=== PATIENT | female | born 1960 | race Caucasian/White ===

== ENCOUNTER 2025-01-16 08:57 | Emergency (ER) | payer OTHER, SELFPAY ==
--- NOTE | ~2025-01-16 | CT_ITS ---
Non-contrast Head CT History: Injury Technique: Axial non-contrast imaging of the brain was performed. Dose reduction technique was used on this scan by utilizing automated exposure control and iterative reconstruction technique. The dose -length product (DLP) was 605.33 mGy-cm. Findings: There is no evidence of intracranial hemorrhage, mass lesion, or acute infarct. Brain par enchyma appears normal. The ventricles and subarachnoid spaces are normal in size. The calvarium ap pears normal. The visualized paranasal sinuses and mastoid air cells are clear. Impression: No significant abnormality seen. Reviewed, dictated and finalized at location . Impression: No significant abnormality seen.
--- NOTE | ~2025-01-16 | CT_ITS ---
EXAMINATION: 1. CT facial & cervical spine wo DATE: 01/16/2025 09:50 INDICATION: Fall with head and facial injury TECHNIQUE: 1. Computed tomography (CT) of the maxillofacial region and of the cervical spine were performed with out intravenous contrast. Sagittal and coronal reconstructions of both regions were obtained. Automat ed exposure control and iterative reconstruction technique were employed. The dose-length product was 331.05 mGy-cm. COMPARISON: None. FINDINGS: Maxillofacial CT: There is small amount of soft tissue gas at the bridge of the nose with suggestion of a laceration on the right side of the previously noticed. There is asymmetric angulation of the caudal aspect the le ft nasal bone with adjacent asymmetric soft tissue swelling suspicious for nondisplaced fracture. No other maxillofacial fractures identified. Specifically the zygomatic arches, mandible and lang of th e orbits and paranasal sinuses are all intact. Orbits are normal. There is mild mucosal thickening in the paranasal sinuses and small mucous retention cyst in the right sphenoid sinus. Mastoid air cells and middle ear cavities are clear. There is leftward bowing of the nasal septum which parallels the contours of the turbinates and without evident fracture. Cervical spine CT: Straightening of the normal lordosis in lower cervical spine with anterior and posterior fusion witho ut instrumentation at C6-C7. Vertebral body heights are normal. Moderate disc height loss at C5-C6. R emaining disc heights are normal. Disc bulge resulting in mild central canal stenosis at C5-C6 and mi nimal central canal stenosis at C2-C3 through C4-C5. There is also mild central canal stenosis at C6- C7 resulting from mild hypertrophic changes along the posterior margin of the fused disc space. There is severe bilateral facet osteoarthritis at C7-T1 and multilevel mild facet osteoarthritis in the mo re cephalad cervical spine. There is mild neural foraminal stenosis on the left at C3-C4 and bilatera lly at C5-C6 and C7-T1. Atherosclerotic calcifications at the bilateral carotid bulbs. Cervical soft tissues are otherwise unremarkable. IMPRESSION: 1. Likely acute nondisplaced fracture of the left nasal bone with focal soft tissue swelling overlyin g a subtle angulation of the nasal bone. No other maxillofacial fractures identified. 2. Moderate cervical spondylosis with anterior and posterior fusion at C6-C7. No acute osseous abnorm ality. Reviewed, dictated and finalized at location B. IMPRESSION: 1. Likely acute nondisplaced fracture of the left nasal bone with focal soft ti ssue swelling overlying a subtle angulation of the nasal bone. No other maxillo facial fractures identified. 2. Moderate cervical spondylosis with anterior and posterior fusion at C6-C7. N o acute osseous abnormality.
[2025-01-16 08:58] VITALS: BP 155/94; PULSE 71; RESP 20; TEMP 36.6; O2SAT 91
--- NOTE | 2025-01-16 09:04 | ED_ITS ---
HPI - Head Injury General Chief complaint: Head Injury Stated complaint: fall Time Seen by Provider: 01/16/25 09:04 Source: patient Mode of arrival: ambulatory Limitations: no limitations History of Present Illness HPI Narrative: patient is a 64-year-old female with an accidental fall at home and landed on the concrete from ground level to her face. She lacerated her upper lip philtrum. She is on Eliquis. No loss of consciousness. Closed head injury. MD Complaint: head injury and fall Onset (ago): hour(s) ( One) Mechanism of Injury: fall Place: home Loss of Consciousness: no Location of injury: frontal Severity: mild Severity scale (1-10): 2 Quality: dull Radiation: none Other Injuries: none Context: other anticoagulant use Associated symptoms: denies other symptoms Related Data Allergies Allergy/AdvReac Type Severity Reaction Status Date / Time No Known Allergies Allergy Verified 01/16/25 09:15 Review of Systems Review of Systems: All systems reviewed & are unremarkable except as noted in HPI and below Constitutional: Constitutional: Reports no additional constitutional complaints Eyes: Eyes: Reports no additional eye complaints ENT: Reports system reviewed and no additional complaints, except as do cumented Cardiovascular: Cardiovascular: Reports no additional cardiovascular complaints Respiratory: Respiratory: Reports no additional respiratory complaints Gastrointestinal: Gastrointestinal: Reports no additional gastrointestinal com plaints Genitourinary: Genitourinary: Reports no additional female genitourinary complaints Musculoskeletal: Musculoskeletal: Reports no additional musculoskeletal complaints Integumentary/Breasts: Skin/Breast: Reports system reviewed and no additional complaints, except as docu Neurologic: Reports system reviewed and no additional complaints, except as documented Psychiatric: Psychiatric: Reports no additional psychiatric complaints Endocrine: Endocrine: Reports no additional endocrine complaints Hematologic/Lymphatic: Hematologic/Lymphatic: Reports no additional hematologic/lymphatic complaints Allergic/Immunologic: Allergic/Immunologic: Reports no additional allergic/immunologic complaints Exam Const: General: healthy appearing Nutritional Appearance: well nourished Orientation/consciousness: patient oriented x3 HENMT: Head: normal to inspection Ears: external ears normal Face/Nose/Sinus: Normal external nose present Eyes: Conjunctivae: conjunctivae normal Pupils: Equal, round and reactive pupils present EOM: EOMs intact bilaterally Neck: Neck: normal visual inspection Chest: Chest palpation & inspection: normal inspection of the chest Resp: Effort & Inspection: normal respiratory effort and not labored Auscultation: clear to auscultation bilaterally and no crackles Cardio: Rate: regular rate Rhythm: regular rhythm Heart sounds: no murmurs GI: Inspection: non-distended GI Palp: Yes Soft to palpation and Yes Tenderness to palpation present (GI) Auscultation: normal bowel sounds : General: Yes bladder normal to palpation Back/Spine/Pelvis: Back: no CVA tenderness Skin: General skin exam: normal color Rashes: no rashes Wounds: wound noted Other: midline upper lip philtrum has a large laceration with almost through and through appearance a 1 cm; bleeding has stopped left forearm has superficial abrasions of entire extensor surface without foreign body Neuro: General: patient oriented x3 Cranial nerves: Yes CN's II-XII intact bilaterally Speech: normal speech Gait exam (Neuro): Normal gait present Extrem: General: normal to inspection Psych: Mental Status: mental status grossly normal Affect: normal affect Attitude: cooperative Course Vital Signs Vital signs: Vital Signs Temperature 36.6 C 01/16/25 08:58 Pulse Rate 71 01/16/25 08:58 Respiratory Rate 20 01/16/25 08:58 Blood Pressure 155/94 H 01/16/25 08:58 Pulse Oximetry 91 01/16/25 08:58 Oxygen Delivery Room Air 01/16/25 08:58 Temperature 36.6 C 01/16/25 08:58 Pulse Rate 71 01/16/25 08:58 Respiratory Rate 20 01/16/25 08:58 Blood Pressure 155/94 H 01/16/25 08:58 Pulse Oximetry 91 01/16/25 08:58 Oxygen Delivery Room Air 01/16/25 08:58 Procedures Other Procedure Procedure 1: Other Procedure: facial laceration 1 cm in length linear: Area cleaned with chlorhexidine/cleanser and iodine, lidocaine 1% 5 cc used for anesthesia, 5 simple sutures placed for complete closure with good results, patient tolerated procedure well and no complications, triple antibiotic placed on open wounds MDM - Head Injury MDM Narrative Medical decision making narrative: Patient is a 64-year-old female with a face and head injury prior to arrival from a ground level fall. We will go ahead and do CT scan of the head neck and face. We will suture closed the philtrum. Tetanus given. Imaging Data Attestation: I personally reviewed and interpreted this imaging study as follows: Radiologist's impression: CT scan of the head was negative for acute process CT scan of the cervical spine was negative for acute process CT scan of the facial bones has nasal fracture Discharge Plan Discharge Clinical Impression: Closed head injury Qualifiers: Encounter type: initial encounter Qualified Code(s): S09.90XA - Unspecified injury of head, initial encounter Facial laceration Qualifiers: Encounter type: initial encounter Qualified Code(s): S01.81XA - Laceration without foreign body of other part of head, initial encounter Closed fracture nasal bone Qualifiers: Encounter type: initial encounter Qualified Code(s): S02.2XXA - Fracture of nasal bones, initial encounter for closed fracture Patient Disposition: Home Condition: Stable Instructions: Nasal Fracture (ED), Head Injury (ED), Facial Laceration (ED) Additional Instructions: please follow-up with the primary doctor in the next week. You will need the stitches to be removed in 5-7 days with the primary doctor. Use antibiotic ointment on all areas of open wounds daily to twice a day. Monitor head injury for the 1st 24 hours closely. Patient Language: [place]i Prescriptions: New hydrocodone-acetaminophen 5-325 mg tablet 1 tablet PO Q8H PRN (Reason: pain) Qty: 20 0RF Follow-up/Referrals: UNKNOWN,DOCTOR [Non-Staff] - Time of Disposition: 11:52
[2025-01-16] MEDS: TETANUS,DIPHTHERIA,AC PERTUSSIS ADULT 0.5 ML (ADACEL) IM (09:19)
--- OUTSIDE RECORDS SUMMARY | 2025-01-16 09:49 | XMS_ITS | Clinical Summary ---
Author Organization [facility] Address [address] [place] [id number] Care Team Providers Care Strings Teacher Name Role Phone None, Provider MD Primary Care Provider Unavaila ble Allergies No known active allergies Medications hydrochlorothia zide 12.5 MG tablet Take 12.5 mg by mouth every morning. Active QUEtiapine 25 MG tablet Take 25 mg by mouth nightly at bedtime. Active tamsulosin 0.4 MG Cap Take 1 capsule (0.4 mg total) by mouth daily. 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 Pulse 88 11/09/2019 2:00 AM STEEL DIE ENGRA[employer] Temperature 36.3 C (97.3 F) 11/08/2019 11:33 PM STEEL [employer]RA[employer] Respiratory Rate 17 11/09/2019 2:00 AM STEEL DIE ENGRAVER Oxygen Saturation 98% 11/09/2019 2:00 AM STEEL DIE ENGRAVER Inhaled Oxygen Concentration - - Weight 108.9 kg (240 lb) 11/08/2019 11:33 PM STEEL DIE ENGRAVER Height 167.6 cm (5' 6 ) 11/08/2019 11:33 PM STEEL DIE ENGRAVER Body Mass Index 38.74 11/08/2019 11:33 PM STEEL DIE ENGRAVER Plan of Treatment Health Maintenance Due Date Last Done Comments Cervical Cancer Screening Pa p Smear (Age 30 to 64) Every 3 Years 1962 Colorectal Cancer Screening Colonoscopy (10 Years) 1962 Annual Physical 1965 Hepatitis C 02/04/1980 DTaP, Tdap and Td Vaccines ( 1 - Tdap) 1981 Cervical Cancer Screening Pa p with HPV Testing (Age 30 to 64) Every 5 Years 02/04/1992 Cervical Cancer Screening with HPV 02/04/1992 Mammogram Screening 2002 Pneumococcal Vaccine: 50+ Ye ars (1 of 1 - PCV) 02/04/2012 Zoster Vaccines (1 of 2) 02/04/2012 COVID-19 Vaccine (1 - 2023-2 5 season) 2024 RSV Immunization or 60+ Years (1 - 1-dose 75+ series) 2037 Meningococcal B Vaccine Aged Out No l onger eligible based on patient's age to complete this topic Meningococcal Vaccine Aged Out No manolo kahlil eligible based on patient's age to complete this topic RSV Immunizations Under 20 Months Aged Out No longer eligible based on patient's age to complete this topic Insurance Care Teams Strings Teacher Relationship Specialty Start Date End Date None, Provider, PCP - General 11/09/19
--- OUTSIDE RECORDS SUMMARY | 2025-01-16 09:49 | XMS_ITS | Continuity of Care Document ---
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 It does not include entries that were removed or entered in error. Problem Status Onset Date Problem Type Date of Resolution Comments Source Anticoagulant control - finding Active Condition [facility] Benign essential hypertension (SNOMED CT 7935494) Active Condition [facility] Disorder of vitamin B12 Active Condition [facility] Edema of lower leg Active Condition [facility] Generalized anxiety disorder Active Condition [facility] History of deep vein thrombosis (SNOMED CT 229933682) Active Condition Oct 11, 2011 Entered By: RITA MOORE A Comment: February 2008, had a filter put in, but it was removed.Oct 11, 2011 Entered By: RITA MOORE A Comment: also had some type of ablation [facility] Hyperlipidemia (SNOMED CT 07426887) Active Condition [facility] Insomnia Active Condition [facility] Obesity Active Condition [facility] Polycythemia Active Condition [facility] Steatosis of liver Active Condition [facility] Therapeutic drug effect Active Condition [facility] Thigh pain Active Condition [facility] Type 2 diabetes mellitus Active Condition [facility] Acute Venous Embolism and Thrombosis of unspecified Deep Vessels of lower Extrem Inactive Condition 01/05/2023 [facility] Anemia Inactive Condition 07/16/2023 [facility] Derangement, Internal Inactive Condition 07/16/2023 [facility] Encounter for Therapeutic Drug Monitoring Inactive Condition 07/16/2023 [facility] Gynecologic Exam Inactive Condition 01/05/2023 [place] FUENTES [facility] Menopause (SNOMED CT 238298970) Inactive Condition 07/16/2023 [facility] Nabothian follicles on cervix (SCT 26753615) - Cervicitis and endocervicitis (IC Inactive Condition 07/16/2023 [facility] KOREY GALLARDO [facility] Other Pulmonary Embolism and Infarction Inactive Condition 01/05/2023 [facility] Tinea cruris Inactive Condition 07/16/2023 STJuju WINTERS [facility] Unspecified Fall Inactive Condition 07/16/2023 Fe b 2011 Entered By: RITA MOORE Comment: fell in the back of a trailerFeb 2011 Entered By: RITA MOORE Comment: torn ACL and MCl unable to repair due to emboli [facility] Vitamin D deficiency Inactive Condition 07/16/2023 [facility] Diagnosis: ICD-10-CM Z51.81 Encounter for therapeutic drug level monitoring [facility] Diagnosis: ICD-10-CM Z00.00 Encntr for general adult medical exam w/o abnormal findings Active Diagnosis [facility] Diagnosis: ICD-10-CM E11.9 Type 2 diabetes mellitus without complications Active Diagnosis [facility] Diagnosis: ICD-10-CM G47.00 Insomnia, unspecified Active Diagnosis [facility] Diagnosis: ICD-10-CM Z79.01 nursing home (current) use of anticoagulants Active Diagnosis [facility] Diagnosis: ICD-10-CM R94.5 Abnormal results of liver function studies Active Diagnosis [facility] Diagnosis: ICD-10-CM I10 Essential (primary) hypertension Active Diagnosis [facility] Medications Combined list of outpatient medications from Department of Defense and Veterans Affairs facilities.Medications provided include 1) outpatient medications from the last 15 months, and 2) patient-reported medications. Medication Details Route Status Patient Instructions Prescription Expires Prescription Number Last Dispense Date Ordering Provider Order Date Order Qty Source APIXABAN 5MG TAB TAKE ONE-HALF TABLET BY MOUTH TWICE A DAY FOR ANTICOAG ULATION ORAL SUSPEND ED 12/20/2025 [id number] DUSTIN JIMÉNEZ 2024 90 [facility] N APIXABAN 5MG TAB TAKE ONE-HALF TABLET BY MOUTH TWICE A DAY FOR ANTICOAG ULATION ORAL DISCONT INUED 01/01/2025 [id number] 5 DUSTIN JIMÉNEZ 2023 90 [facility] N APIXABAN 5MG TAB TAKE ONE-HALF TABLET BY MOUTH TWICE A DAY FOR ANTICOAG ULATION ORAL DISCONT INUED 02/15/2024 [id number] LEATHA COON 2022 90 [facility] N ATORVASTATI N CA 80MG TAB TAKE ONE-HALF TABLET BY MOUTH EVERY EVENING TO LOWER CHOLESTE ROL ORAL ACTIVE 07/23/2025 [id number] 5 SHON DAVILA R 2023 45 [facility] ATORVASTATI N CA 80MG TAB TAKE ONE-HALF TABLET BY MOUTH EVERY EVENING TO LOWER CHOLESTE ROL ORAL DISCONT INUED 06/15/2024 [id number] COLIN CARTER 2022 45 [facility] LISINOPRIL 40MG TAB TAKE ONE-HALF TABLET BY MOUTH ONCE A DAY FOR HEART OR BLOOD PRESSURE ORAL SUSPEND ED 07/23/2025 [id number] 5 SHON DAVILA R 2024 45 [facility] LISINOPRIL 40MG TAB TAKE ONE-HALF TABLET BY MOUTH ONCE A DAY FOR HEART OR BLOOD PRESSURE ORAL DISCONT INUED 07/13/2024 [id number] 4 SHON DAVILA R 2023 45 [facility] METFORMIN HCL 1000MG TAB TAKE ONE TABLET BY MOUTH TWICE A DAY WITH MEALS FOR BLOOD SUGAR CONTROL. TAKE WITH FOOD. AVOID ALCOHOL. DISCONTI NUE BEFORE GETTING XRAY DYE. ORAL SUSPEND ED 07/23/2025 [id number] 5 HSON DAVILA R 2023 180 [facility] METFORMIN HCL 1000MG TAB TAKE ONE TABLET BY MOUTH TWICE A DAY WITH MEALS FOR BLOOD SUGAR CONTROL. TAKE WITH FOOD. AVOID ALCOHOL. DISCONTI NUE BEFORE GETTING XRAY DYE. ORAL DISCONT INUED 07/13/2024 [id number] 4 SHON DAVILA R 2023 180 [facility] METHOCARBAM OL 750MG TAB TAKE 1 TABLET BY MOUTH TWICE DAILY NEEDED FOR MUSCLE RELAXANT ORAL SUSPEND ED 07/23/2025 [id number] 5 SHON DAVILA R 2023 180 [facility] METHOCARBAM OL 750MG TAB TAKE 1 TABLET BY MOUTH TWICE DAILY NEEDED FOR MUSCLE RELAXANT ORAL DISCONT INUED 07/13/2024 [id number] 4 SHON DAVILA R 2023 180 [facility] MULTIVITAMI NS CAP/TAB TAKE ONE TABLET BY MOUTH ONCE A DAY ORAL ACTIVE LUKAS WISE 2021 [facility] QUETIAPINE FUMARATE 50MG TAB TAKE ONE-HALF TABLET BY MOUTH AT BEDTIME FOR MOOD ORAL ACTIVE 03/28/2025 [id number] 5 RYAN BLISS 2023 45 [facility] N QUETIAPINE FUMARATE 50MG TAB TAKE ONE-HALF TABLET BY MOUTH AT BEDTIME FOR MOOD ORAL DISCONT INUED 03/27/2024 [id number] 4 RYAN BLISS 2022 45 [facility] N Immunizations Combined list of available immunizations from the Department of Defense and [facility] Affairs facilities. Immunization Series Date Given Administered By Site Reaction Lot Number CVX Code Drug Communication Clerk Status Comments Source INFLUENZA, SPLIT VIRUS, TRIVALENT, PF 2023 BEATRICE RAMIREZ [place] [id number] 140 complet ed [facility] INFLUENZA, INJECTABLE, QUADRIVALENT, PRESERVATIVE FREE 2022 LISA SHEFFIELD RIGHT DELTO ID [id number] A 150 complet ed [facility] PNEUMOCOCCAL CONJUGATE PCV20, POLYSACCHARID E [id number] CONJUGATE, ADJUVANT, PF 2022 LISA SHEFFIELD RIGHT DELTO ID [id number] 216 complet ed [facility] COVID-19 (MODERNA), MRNA, LNP-S, BIVALENT, PF, 50 MCG/0.5 ML OR 25MCG/0.25 ML DOSE 4 2022 229 complet ed HISTORICA L INFORMATI ON - FROM OTHER [facility], [facility] COVID-19 (MODERNA), MRNA, LNP-S, PF, 100 MCG/0.5ML DOSE OR 50 MCG/0.25ML DOSE 3 2022 207 complet ed HISTORICA L INFORMATI ON - [facility] INFLU[facility], INJECTABLE, QUADRIVALENT 2021 158 complet ed [facility] TDAP 2 2021 115 complet ed HISTORICA L INFORMATI ON - FROM OTHER [facility], [facility] N ZOSTER RECOMBINANT 2 2021 187 complet ed [facility] COVID-19 (MODERNA), MRNA, LNP-S, PF, 100 MCG/0.5ML DOSE OR 50 MCG/0.25ML DOSE 2 2020 207 complet ed [facility]ORICA L INFORMATI ON - [facility] 1 2020 187 complet ed [facility] INFLUENZA, INJECTABLE, QUADRIVALENT, PRESERVATIVE FREE 4 2020 150 complet ed HISTORICA L INFORMATI ON - FROM OTHER [facility] N INFLUENZA, SEASONAL, INJECTABLE 3 2020 141 complet ed HISTORICA L INFORMATI ON - FROM OTHER [facility], [facility] COVID-19 (MODERNA), MRNA, LNP-S, PF, 100 MCG/0.5ML DOSE OR 50 MCG/0.25ML DOSE 3 2020 207 complet ed HISTORICA L INFORMATI ON - SOURCE UNSPECIFI ED, [facility] N COVID-19 (MODERNA), MRNA, LNP-S, PF, 100 MCG/0.5ML DOSE OR 50 MCG/0.25ML DOSE 1 2020 207 complet ed [facility] N INFLUENZA, INJECTABLE, QUADRIVALENT, PRESERVATIVE FREE 2019 150 complet ed [facility] HEP B, ADULT 2 2019 43 complet ed HISTORICA L INFORMATI ON - [facility] OTHER [facility] INFLUENZA, INJECTABLE, QUADRIVALENT 2 2018 158 complet ed HISTORICA L INFORMATI ON - FROM OTHER REGISTRY, [facility] HEP B, ADULT 1 2018 43 complet ed HISTORICA L INFORMATI ON - FROM OTHER REGISTRY, [facility] N MMR 4 2018 03 complet ed HISTORICA L INFORMATI ON - FROM OTHER REGISTRY, [facility] N INFLUENZA, INJECTABLE, QUADRIVALENT 1 2017 158 complet ed HISTORICA L INFORMATI ON - FROM OTHER REGISTRY, [facility] N INFLUENZA, INJECTABLE, QUADRIVALENT, PRESERVATIVE FREE 2016 150 complet ed [facility] N INFLUENZA, SEASONAL, INJECTABLE 2015 141 complet ed [facility] N INFLUENZA, SEASONAL, INJECTABLE, PRESERVATIVE FREE 2015 140 complet ed [facility] N INFLUENZA, SEASONAL, INJECTABLE, PRESERVATIVE FREE 2014 140 complet ed [facility] N PNEUMOCOCCAL POLYSACCHARID E PPV23 2013 33 complet ed [facility] INFLUENZA, UNSPECIFIED FORMULATION 2013 88 complet ed [facility] INFLUENZA, UNSPECIFIED FORMULATION 2012 88 complet ed [facility] INFLUENZA, UNSPECIFIED FORMULATION 2011 88 complet ed [facility] TDAP 2011 115 complet ed Right Deltoid [facility] INFLUENZA, UNSPECIFIED FORMULATION 2010 88 complet ed [facility] INFLUENZA, UNSPECIFIED FORMULATION 2010 88 complet ed [facility] MEASLES 3 1979 05 complet ed HISTORICA L INFORMATI ON - FROM OTHER REGISTRY, [facility] N RUBELLA 2 1969 06 complet ed HISTORICA L INFORMATI ON - FROM OTHER REGISTRY, [facility] N MEASLES 1 1963 05 complet ed HISTORICA L INFORMATI ON - FROM OTHER REGISTRY, [facility] N Results Combined list of recent chemistry, hematology and other laboratory results from Department of Defense and Veterans Affairs, ranging from 15 months to all on record, depending upon the facility. Order Name Results Value Reference Range Date Interpretation Specimen Comments Source [id number] HEMOGLOBIN A1C/HEMOGLO BIN.TOTAL IN BLOOD 6.7 4.0 - 6.0 07/22 H Specimen Type: BLOOD No comment entered. Ordering Provider: LOW DAVILA Report Released Date/Time: Jul 22, 2024 08:48 AM Reporting Lab: [facility] [address] [place] [phone] Performing Lab: [address] VITAMIN D, 25-HYDROX Y 25-HYDROXYV ITAMIN D3 [MASS/VOLUM E] IN SERUM OR PLASMA 47.0 ng/mL 30 - 96 07/22 Specimen Type: SERUM No comment entered. Ordering Provider: LOW DAVILA Report Released Date/Time: Jul 22, 2024 08:48 AM Reporting Lab: [facility] [address] [place] [phone] Performing Lab: [facility] [address] [place] [phone] [place] [address] TSH (MA-PB) THYROTROPIN [UNITS/VOLU ME] IN SERUM OR PLASMA 1.479 u[IU]/ mL 0.47 - 5 11/12 /2024 Specimen Type: SERUM No comment entered. Ordering Provider: LOW DAVILA Report Released Date/Time: Jul 22, 2024 08:48 AM Reporting Lab: [facility] [address] [facility] [place] [address] Performing Lab: [facility] [address] [facility] [place] [phone] [facility] LIPID PANEL (STL) CHOLESTEROL [MASS/VOLUM E] IN SERUM OR PLASMA 152 mg/dL 0 - 200 07/22 Specimen Type: PLASMA Comment: K result may show a positive bias due to hemolysis. Specimen slightly hemolyzed. Ordering Provider: LOW DAVILA Report Released Date/Time: Jul 22, 2024 08:48 AM Reporting Lab: [facility] [address] [facility] [place] [phone] Performing Lab: [facility] [address] [facility] [place] [address] [facility] LIPID PANEL (L) TRIGLYCERID E [MASS/VOLUM E] IN SERUM OR PLASMA 186 mg/dL 0 - 150 07/22 H Specimen Type: PLASMA Comment: K result may show a positive bias due to hemolysis. Specimen slightly hemolyzed. Ordering Provider: LOW DAVILA Report Released Date/Time: Jul 22, 2024 08:48 AM Reporting Lab: [facility] [address] [facility] [place] [address] Performing Lab: [facility] [address] [facility] [place] [phone] [facility] LIPID PANEL (STL) CHOLESTEROL IN LDL [MASS/VOLUM E] IN SERUM OR PLASMA BY CALCULATION 80 mg/dL 07/22 Specimen Type: PLASMA Comment: K result may show a positive bias due to hemolysis. Specimen slightly hemolyzed. Ordering Provider: LOW DAVILA Report Released Date/Time: Jul 22, 2024 08:48 AM Reporting Lab: [facility] [address] [facility] [place] [phone] Performing Lab: [facility] [address] [facility] [place] [phone] [place] [address] LIPID PANEL (STL) CHOLESTEROL IN HDL [MASS/VOLUM E] IN SERUM OR PLASMA 35 mg/dL 40 07/22 L Specimen Type: PLASMA Comment: K result may show a positive bias due to hemolysis. Specimen slightly hemolyzed. Ordering Provider: LOW DAVILA Report Released Date/Time: Jul 22, 2024 08:48 AM Reporting Lab: [facility] [address] [place] [phone] Performing Lab: [facility] [address] [place] [address] B12 COBALAMIN (VITAMIN B12) [MASS/VOLUM E] IN SERUM OR PLASMA 433 pg/mL 213 - 816 07/22 Specimen Type: SERUM No comment entered. Ordering Provider: LOW DAVILA Report Released Date/Time: Jul 22, 2024 08:48 AM Reporting Lab: [facility] [address] [place], [place] [phone] Performing Lab: [facility] [address] [place] [phone] COMPREHEN SIVE METABOLIC PANEL CREATININE [MASS/VOLUM E] IN SERUM OR PLASMA 0.96 mg/dL 0.6 - 1.1 07/22 Specimen Type: PLASMA Comment: K result may show a positive bias due to hemolysis. Specimen slightly hemolyzed. Ordering Provider: LOW DAVILA Report Released Date/Time: Jul 22, 2024 08:48 AM Reporting Lab: [facility] [address] [facility] [place] [phone] Performing Lab: [facility] [address] [place] [phone] COMPREHEN SIVE METABOLIC PANEL UREA NITROGEN [MASS/VOLUM E] IN SERUM OR PLASMA 11.0 mg/dL 9.0 - 25.0 07/22 Specimen Type: PLASMA Comment: K result may show a positive bias due to hemolysis. Specimen slightly hemolyzed. Ordering Provider: LOW DAVILA Report Released Date/Time: Jul 22, 2024 08:48 AM Reporting Lab: [facility] [address] [facility] [phone] Performing Lab: [facility] [address] [facility] [phone] [facility] COMPREHEN SIVE METABOLIC PANEL GLUCOSE [MASS/VOLUM E] IN SERUM OR PLASMA 102 mg/dL 72 - 99 07/22 H Specimen Type: PLASMA Comment: K result may show a positive bias due to hemolysis. Specimen slightly hemolyzed. Ordering Provider: LOW DAVILA Report Released Date/Time: Jul 22, 2024 08:48 AM Reporting Lab: [facility] [address] [facility] [place] [phone] Performing Lab: [facility] [address] [facility] [phone] [place] [address] COMPREHEN SIVE METABOLIC PANEL SODIUM [MOLES/VOLU ME] IN SERUM OR PLASMA 140 meq/L 136 - 145 07/22 Specimen Type: PLASMA Comment: K result may show a positive bias due to hemolysis. Specimen slightly hemolyzed. Ordering Provider: LOW DAVILA Report Released Date/Time: Jul 22, 2024 08:48 AM Reporting Lab: [facility] [address] [facility] [phone] Performing Lab: [facility] [address] [facility] [phone] [facility] COMPREHEN SIVE METABOLIC PANEL POTASSIUM [MOLES/VOLU ME] IN SERUM OR PLASMA 4.2 meq/L 3.5 - 5 07/22 Specimen Type: PLASMA Comment: K result may show a positive bias due to hemolysis. Specimen slightly hemolyzed. Ordering Provider: LOW DAVILA Report Released Date/Time: Jul 22, 2024 08:48 AM Reporting Lab: [facility] [address] [facility] [phone] Performing Lab: [facility] [address] [facility] [address] [facility] COMPREHEN SIVE METABOLIC PANEL CHLORIDE [MOLES/VOLU ME] IN SERUM OR PLASMA 109 meq/L 98 - 107 07/22 H Specimen Type: PLASMA Comment: K result may show a positive bias due to hemolysis. Specimen slightly hemolyzed. Ordering Provider: LOW DAVILA Report Released Date/Time: Jul 22, 2024 08:48 AM Reporting Lab: [place] [address] Performing Lab: [facility] [address] [place] [phone] COMPREHEN SIVE METABOLIC PANEL CARBON DIOXIDE, TOTAL [MOLES/VOLU ME] IN SERUM OR PLASMA 20 meq/L 22 - 31 07/22 L Specimen Type: PLASMA Comment: K result may show a positive bias due to hemolysis. Specimen slightly hemolyzed. Ordering Provider: LOW DAVILA Report Released Date/Time: Jul 22, 2024 08:48 AM Reporting Lab: [facility] [address] [place], [place] [phone] Performing Lab: [place] [address] [place] [phone] COMPREHEN SIVE METABOLIC PANEL CALCIUM [MASS/VOLUM E] IN SERUM OR PLASMA 9.9 mg/dL 8.4 - 10.4 07/22 Specimen Type: PLASMA Comment: K result may show a positive bias due to hemolysis. Specimen slightly hemolyzed. Ordering Provider: LOW DAVILA Report Released Date/Time: Jul 22, 2024 08:48 AM Reporting Lab: [facility] [address] [place] [phone] Performing Lab: [place] [phone] COMPREHEN SIVE METABOLIC PANEL PROTEIN [MASS/VOLUM E] IN SERUM OR PLASMA 6.8 g/dL 6 - 8.6 07/22 Specimen Type: PLASMA Comment: K result may show a positive bias due to hemolysis. Specimen slightly hemolyzed. Ordering Provider: LOW DAVILA Report Released Date/Time: Jul 22, 2024 08:48 AM Reporting Lab: [facility] [address] [facility] [phone] Performing Lab: [facility] [address] [place] [phone] [place] [address] COMPREHEN SIVE METABOLIC PANEL ALBUMIN [MASS/VOLUM E] IN SERUM OR PLASMA 4.0 g/dL 3.4 - 5 07/22 Specimen Type: PLASMA Comment: K result may show a positive bias due to hemolysis. Specimen slightly hemolyzed. Ordering Provider: LOW DAVILA Report Released Date/Time: Jul 22, 2024 08:48 AM Reporting Lab: [address] [phone] Performing Lab: [address] [phone] [place] [address] COMPREHEN SIVE METABOLIC PANEL BILIRUBIN.T OTAL [MASS/VOLUM E] IN SERUM OR PLASMA 0.6 mg/dL 0.2 - 1.2 07/22 Specimen Type: PLASMA Comment: K result may show a positive bias due to hemolysis. Specimen slightly hemolyzed. Ordering Provider: LOW DAVILA Report Released Date/Time: Jul 22, 2024 08:48 AM Reporting Lab: [facility] [address] [place] [phone] Performing Lab: [facility] [address] [place] [phone] [place] [address] COMPREHEN SIVE METABOLIC PANEL ALKALINE PHOSPHATASE [ENZYMATIC ACTIVITY/VO LUME] IN SERUM OR PLASMA 89 U/L 40 - 150 07/22 Specimen Type: PLASMA Comment: K result may show a positive bias due to hemolysis. Specimen slightly hemolyzed. Ordering Provider: LOW DAVILA Report Released Date/Time: Jul 22, 2024 08:48 AM Reporting Lab: [facility] [address] [place] [phone] Performing Lab: [facility] [address] [place] [phone] [facility] COMPREHEN SIVE METABOLIC PANEL ASPARTATE AMINOTRANSF ERASE [ENZYMATIC ACTIVITY/VO LUME] IN SERUM OR PLASMA 26 U/L 5 - 34 07/22 Specimen Type: PLASMA Comment: K result may show a positive bias due to hemolysis. Specimen slightly hemolyzed. Ordering Provider: LOW DAVILA Report Released Date/Time: Jul 22, 2024 08:48 AM Reporting Lab: [place] [address] Performing Lab: [address] COMPREHEN SIVE METABOLIC PANEL ALANINE AMINOTRANSF ERASE [ENZYMATIC ACTIVITY/VO LUME] IN SERUM OR PLASMA 27 U/L 8 - 40 07/22 Specimen Type: PLASMA Comment: K result may show a positive bias due to hemolysis. Specimen slightly hemolyzed. Ordering Provider: LOW DAVILA Report Released Date/Time: Jul 22, 2024 08:48 AM Reporting Lab: [facility] [address] [place] [address] Performing Lab: [address] COMPREHEN SIVE METABOLIC PANEL GLOMERULAR FILTRATION RATE/1.73 SQ M.PREDICTED [VOLUME RATE/AREA] IN SERUM, PLASMA OR BLOOD BY CREATININE- BASED FORMULA (CKD-EPI 2020) 66.9 60 07/22 Specimen Type: PLASMA Comment: K result may show a positive bias due to hemolysis. Specimen slightly hemolyzed. Ordering Provider: LOW DAVILA Report Released Date/Time: Jul 22, 2024 08:48 AM Reporting Lab: [facility] [address] [place] [address] Performing Lab: [address] CBC LEUKOCYTES [#/VOLUME] IN BLOOD BY AUTOMATED COUNT 6.7 10*3/u L 3.6 - 11.2 07/22 Specimen Type: BLOOD No comment entered. Ordering Provider: LOW DAVILA Report Released Date/Time: Jul 22, 2024 08:48 AM Reporting Lab: [facility] [address] [place], [place] [phone] Performing Lab: [facility] [address] [place] [address] [phone] [place] [address] CBC ERYTHROCYTE S [#/VOLUME] IN BLOOD BY AUTOMATED COUNT 4.88 10*6/u L 3.60 - 5.00 07/22 Specimen Type: BLOOD No comment entered. Ordering Provider: LOW DAVILA Report Released Date/Time: Jul 22, 2024 08:48 AM Reporting Lab: [place] [address] Performing Lab: [address] CBC HEMOGLOBIN [MASS/VOLUM E] IN BLOOD 14.5 g/dL 11.0 - 14.9 07/22 Specimen Type: BLOOD No comment entered. Ordering Provider: LOW DAVILA Report Released Date/Time: Jul 22, 2024 08:48 AM Reporting Lab: [facility] [address] [place], [place] [phone] Performing Lab: [address] [phone] CBC HEMATOCRIT [VOLUME FRACTION] OF BLOOD 44.8 32.6 - 43.4 07/22 H Specimen Type: BLOOD No comment entered. Ordering Provider: LOW DAVILA Report Released Date/Time: Jul 22, 2024 08:48 AM Reporting Lab: [facility] [address] [place] [address] Performing Lab: [place] [phone] CBC MCV [ENTITIC VOLUME] BY AUTOMATED COUNT 91.8 fL 80.0 - 100.0 07/22 Specimen Type: BLOOD No comment entered. Ordering Provider: LOW DAVILA Report Released Date/Time: Jul 22, 2024 08:48 AM Reporting Lab: [facility] [address] [place], [place] [phone] Performing Lab: [facility] [address] [place] [phone] [facility] CBC MCH [ENTITIC MASS] BY AUTOMATED COUNT 29.7 pg 27.0 - 34.0 07/22 Specimen Type: BLOOD No comment entered. Ordering Provider: LOW DAVILA Report Released Date/Time: Jul 22, 2024 08:48 AM Reporting Lab: [facility] [address] [place] [address] Performing Lab: [address] [phone] [place] [address] CBC MCHC [MASS/VOLUM E] BY AUTOMATED COUNT 32.4 g/dL 33.0 - 36.0 07/22 L Specimen Type: BLOOD No comment entered. Ordering Provider: LOW DAVILA Report Released Date/Time: Jul 22, 2024 08:48 AM Reporting Lab: [facility] [address] [place] [phone] Performing Lab: [facility] [address] [place] [phone] [place] [address] CBC PLATELETS [#/VOLUME] IN BLOOD BY AUTOMATED COUNT 200 10*3/u L 150 - 400 07/22 Specimen Type: BLOOD No comment entered. Ordering Provider: LOW DAVILA Report Released Date/Time: Jul 22, 2024 08:48 AM Reporting Lab: [facility] [address] [place] [phone] Performing Lab: [address] [phone] [place] [address] CBC PLATELET MEAN VOLUME [ENTITIC VOLUME] IN BLOOD BY AUTOMATED COUNT 11.8 fL 7.5 - 11.2 07/22 H Specimen Type: BLOOD No comment entered. Ordering Provider: LOW DAVILA Report Released Date/Time: Jul 22, 2024 08:48 AM Reporting Lab: [facility] [address] [facility] [address] Performing Lab: [facility] [address] [facility] [address] [facility] CBC ERYTHROCYTE DISTRIBUTIO N WIDTH [RATIO] BY AUTOMATED COUNT 12.7 11.8 - 15.1 07/22 Specimen Type: BLOOD No comment entered. Ordering Provider: LOW DAVILA Report Released Date/Time: Jul 22, 2024 08:48 AM Reporting Lab: [facility] [address] [facility] [address] Performing Lab: [facility] [address] [facility] [address] [facility] CBC LYMPHOCYTES /100 LEUKOCYTES IN BLOOD BY AUTOMATED COUNT 35 07/22 Specimen Type: BLOOD No comment entered. Ordering Provider: LOW DAVILA Report Released Date/Time: Jul 22, 2024 08:48 AM Reporting Lab: [facility] [address] [facility] [address] Performing Lab: [facility] [address] [facility] [address] [facility] CBC MONOCYTES/1 00 LEUKOCYTES IN BLOOD BY AUTOMATED COUNT 7 07/22 Specimen Type: BLOOD No comment entered. Ordering Provider: LOW DAVILA Report Released Date/Time: Jul 22, 2024 08:48 AM Reporting Lab: [facility] [address] [facility] [address] Performing Lab: [facility] [address] [facility] [address] [facility] CBC NEUTROPHILS /100 LEUKOCYTES IN BLOOD BY AUTOMATED COUNT 51 07/22 Specimen Type: BLOOD No comment entered. Ordering Provider: LOW DAVILA Report Released Date/Time: Jul 22, 2024 08:48 AM Reporting Lab: [facility] [address] [facility] [address] Performing Lab: [facility] [address] [facility] [address] [facility] CBC EOSINOPHILS /100 LEUKOCYTES IN BLOOD BY AUTOMATED COUNT 6 07/22 Specimen Type: BLOOD No comment entered. Ordering Provider: LOW DAVILA Report Released Date/Time: Jul 22, 2024 08:48 AM Reporting Lab: [address] [address] Performing Lab: [address] [address] [facility] CBC BASOPHILS/1 00 LEUKOCYTES IN BLOOD BY AUTOMATED COUNT 1 07/22 Specimen Type: BLOOD No comment entered. Ordering Provider: LOW DAVILA Report Released Date/Time: Jul 22, 2024 08:48 AM Reporting Lab: [address] [address] Performing Lab: [address] [address] [facility] CBC LYMPHOCYTES [#/VOLUME] IN BLOOD BY AUTOMATED COUNT 2.33 10*3/u L 0.77 - 4.50 07/22 Specimen Type: BLOOD No comment entered. Ordering Provider: LOW DAVILA Report Released Date/Time: Jul 22, 2024 08:48 AM Reporting Lab: [address] [address] Performing Lab: [address] [address] [facility] CBC MONOCYTES [#/VOLUME] IN BLOOD BY AUTOMATED COUNT 0.47 10*3/u L 0.19 - 0.80 07/22 Specimen Type: BLOOD No comment entered. Ordering Provider: LOW DAVILA Report Released Date/Time: Jul 22, 2024 08:48 AM Reporting Lab: [address] [address] Performing Lab: [address] [address] [facility] CBC NEUTROPHILS [#/VOLUME] IN BLOOD BY AUTOMATED COUNT 3.44 10*3/u L 2.10 - 8.00 07/22 Specimen Type: BLOOD No comment entered. Ordering Provider: LOW DAVILA Report Released Date/Time: Jul 22, 2024 08:48 AM Reporting Lab: [address] [address] Performing Lab: [address] [phone] CBC EOSINOPHILS [#/VOLUME] IN BLOOD BY AUTOMATED COUNT 0.39 10*3/u L 0.00 - 0.60 07/22 Specimen Type: BLOOD No comment entered. Ordering Provider: LOW DAVILA Report Released Date/Time: Jul 22, 2024 08:48 AM Reporting Lab: [address] [address] Performing Lab: [phone] [place] [address] CBC BASOPHILS [#/VOLUME] IN BLOOD BY AUTOMATED COUNT 0.06 10*3/u L 0.00 - 0.20 07/22 Specimen Type: BLOOD No comment entered. Ordering Provider: LOW DAVILA Report Released Date/Time: Jul 22, 2024 08:48 AM Reporting Lab: [address] [address] Performing Lab: [address] [phone] [place] [address] COMPREHEN SIVE METABOLIC PANEL CREATININE [MASS/VOLUM E] IN SERUM OR PLASMA 1.05 mg/dL 0.6 - 1.1 02/12 Specimen Type: PLASMA Comment: No hemolysis noted. Ordering Provider: NORM LARSON Report Released Date/Time: Feb 14, 2023 09:58 AM Reporting Lab: [address] [address] Performing Lab: [address] [place] [address] [facility] COMPREHEN SIVE METABOLIC PANEL UREA NITROGEN [MASS/VOLUM E] IN SERUM OR PLASMA 12.7 mg/dL 9.0 - 25.0 02/12 Specimen Type: PLASMA Comment: No hemolysis noted. Ordering Provider: NORM LARSON Report Released Date/Time: Feb 14, 2023 09:58 AM Reporting Lab: [address] [address] Performing Lab: [address] [address] [facility] COMPREHEN SIVE METABOLIC PANEL GLUCOSE [MASS/VOLUM E] IN SERUM OR PLASMA 141 mg/dL 72 - 99 02/12 H Specimen Type: PLASMA Comment: No hemolysis noted. Ordering Provider: NORM LARSON Report Released Date/Time: Feb 14, 2023 09:58 AM Reporting Lab: [address] [address] Performing Lab: [address] [address] [facility] COMPREHEN SIVE METABOLIC PANEL SODIUM [MOLES/VOLU ME] IN SERUM OR PLASMA 137 meq/L 136 - 145 02/12 Specimen Type: PLASMA Comment: No hemolysis noted. Ordering Provider: NORM LARSON Report Released Date/Time: Feb 14, 2023 09:58 AM Reporting Lab: [address] [address] Performing Lab: [address] [address] [facility] COMPREHEN SIVE METABOLIC PANEL POTASSIUM [MOLES/VOLU ME] IN SERUM OR PLASMA 4.4 meq/L 3.5 - 5 02/12 Specimen Type: PLASMA Comment: No hemolysis noted. Ordering Provider: NORM LARSON Report Released Date/Time: Feb 14, 2023 09:58 AM Reporting Lab: [address] [place] [address] Performing Lab: [place] [address] [facility] [address] [facility] COMPREHEN SIVE METABOLIC PANEL CHLORIDE [MOLES/VOLU ME] IN SERUM OR PLASMA 108 meq/L 98 - 107 02/12 H Specimen Type: PLASMA Comment: No hemolysis noted. Ordering Provider: NORM LARSON Report Released Date/Time: Feb 14, 2023 09:58 AM Reporting Lab: [address] [address] Performing Lab: [address] [address] [facility] COMPREHEN SIVE METABOLIC PANEL CARBON DIOXIDE, TOTAL [MOLES/VOLU ME] IN SERUM OR PLASMA 21 meq/L 22 - 31 02/12 L Specimen Type: PLASMA Comment: No hemolysis noted. Ordering Provider: NORM LARSON Report Released Date/Time: Feb 14, 2023 09:58 AM Reporting Lab: [address] [address] Performing Lab: [address] [address] [facility] COMPREHEN SIVE METABOLIC PANEL CALCIUM [MASS/VOLUM E] IN SERUM OR PLASMA 10.8 mg/dL 8.4 - 10.4 02/12 H Specimen Type: PLASMA Comment: No hemolysis noted. Ordering Provider: NORM LARSON Report Released Date/Time: Feb 14, 2023 09:58 AM Reporting Lab: [address] [address] Performing Lab: [address] [address] [facility] COMPREHEN SIVE METABOLIC PANEL PROTEIN [MASS/VOLUM E] IN SERUM OR PLASMA 7.0 g/dL 6 - 8.6 02/12 Specimen Type: PLASMA Comment: No hemolysis noted. Ordering Provider: NORM LARSON Report Released Date/Time: Feb 14, 2023 09:58 AM Reporting Lab: [address] [address] Performing Lab: [address] [address] [facility] COMPREHEN SIVE METABOLIC PANEL ALBUMIN [MASS/VOLUM E] IN SERUM OR PLASMA 4.3 g/dL 3.4 - 5 02/12 Specimen Type: PLASMA Comment: No hemolysis noted. Ordering Provider: NORM LARSON Report Released Date/Time: Feb 14, 2023 09:58 AM Reporting Lab: [address] [address] Performing Lab: [address] [phone] [place] [address] COMPREHEN SIVE METABOLIC PANEL BILIRUBIN.T OTAL [MASS/VOLUM E] IN SERUM OR PLASMA 0.5 mg/dL 0.2 - 1.2 02/12 Specimen Type: PLASMA Comment: No hemolysis noted. Ordering Provider: NORM LARSON Report Released Date/Time: Feb 14, 2023 09:58 AM Reporting Lab: [address] [address] Performing Lab: [address] [address] [facility] COMPREHEN SIVE METABOLIC PANEL ALKALINE PHOSPHATASE [ENZYMATIC ACTIVITY/VO LUME] IN SERUM OR PLASMA 105 U/L 40 - 150 02/12 Specimen Type: PLASMA Comment: No hemolysis noted. Ordering Provider: NORM LARSON Report Released Date/Time: Feb 14, 2023 09:58 AM Reporting Lab: [address] [address] Performing Lab: [address] [address] [facility] COMPREHEN SIVE METABOLIC PANEL ASPARTATE AMINOTRANSF ERASE [ENZYMATIC ACTIVITY/VO LUME] IN SERUM OR PLASMA 24 U/L 5 - 34 02/12 Specimen Type: PLASMA Comment: No hemolysis noted. Ordering Provider: NORM LARSON Report Released Date/Time: Feb 14, 2023 09:58 AM Reporting Lab: [address] [address] Performing Lab: [place] [phone] COMPREHEN SIVE METABOLIC PANEL ALANINE AMINOTRANSF ERASE [ENZYMATIC ACTIVITY/VO LUME] IN SERUM OR PLASMA 30 U/L 8 - 40 02/12 Specimen Type: PLASMA Comment: No hemolysis noted. Ordering Provider: NORM LARSON Report Released Date/Time: Feb 14, 2023 09:58 AM Reporting Lab: [place] [address] Performing Lab: [address] COMPREHEN SIVE METABOLIC PANEL GLOMERULAR FILTRATION RATE/1.73 SQ M.PREDICTED [VOLUME RATE/AREA] IN SERUM, PLASMA OR BLOOD BY CREATININE- BASED FORMULA (CKD-EPI 2020) 60.1 60 02/12 Specimen Type: PLASMA Comment: No hemolysis noted. Ordering Provider: NORM LARSON Report Released Date/Time: Feb 14, 2023 09:58 AM Reporting Lab: [place] [address] Performing Lab: [address] [phone] [place] [address] CBC LEUKOCYTES [#/VOLUME] IN BLOOD BY AUTOMATED COUNT 7.4 10*3/u L 3.6 - 11.2 02/12 Specimen Type: BLOOD No comment entered. Ordering Provider: NORM LARSON Report Released Date/Time: Feb 14, 2023 09:58 AM Reporting Lab: [place] [address] Performing Lab: [address] [address] [facility] CBC ERYTHROCYTE S [#/VOLUME] IN BLOOD BY AUTOMATED COUNT 4.87 10*6/u L 3.60 - 5.00 02/12 Specimen Type: BLOOD No comment entered. Ordering Provider: NORM LARSON Report Released Date/Time: Feb 14, 2023 09:58 AM Reporting Lab: [address] [address] Performing Lab: [address] [address] [facility] CBC HEMOGLOBIN [MASS/VOLUM E] IN BLOOD 14.9 g/dL 11.0 - 14.9 02/12 Specimen Type: BLOOD No comment entered. Ordering Provider: NORM LARSON Report Released Date/Time: Feb 14, 2023 09:58 AM Reporting Lab: [address] [address] Performing Lab: [address] [address] [facility] CBC HEMATOCRIT [VOLUME FRACTION] OF BLOOD 43.8 32.6 - 43.4 02/12 H Specimen Type: BLOOD No comment entered. Ordering Provider: NORM LARSON Report Released Date/Time: Feb 14, 2023 09:58 AM Reporting Lab: [address] [address] Performing Lab: [address] [address] [facility] CBC MCV [ENTITIC VOLUME] BY AUTOMATED COUNT 89.9 fL 80.0 - 100.0 02/12 Specimen Type: BLOOD No comment entered. Ordering Provider: NORM LARSON Report Released Date/Time: Feb 14, 2023 09:58 AM Reporting Lab: [address] [address] Performing Lab: [address] [address] [facility] CBC MCH [ENTITIC MASS] BY AUTOMATED COUNT 30.6 pg 27.0 - 34.0 02/12 Specimen Type: BLOOD No comment entered. Ordering Provider: NORM LARSON Report Released Date/Time: Feb 14, 2023 09:58 AM Reporting Lab: [address] [address] Performing Lab: [address] [address] [facility] CBC MCHC [MASS/VOLUM E] BY AUTOMATED COUNT 34.0 g/dL 33.0 - 36.0 02/12 Specimen Type: BLOOD No comment entered. Ordering Provider: NORM LARSON Report Released Date/Time: Feb 14, 2023 09:58 AM Reporting Lab: [address] [address] Performing Lab: [address] [address] [facility] CBC PLATELETS [#/VOLUME] IN BLOOD BY AUTOMATED COUNT 226 10*3/u L 150 - 400 02/12 Specimen Type: BLOOD No comment entered. Ordering Provider: NORM LARSON Report Released Date/Time: Feb 14, 2023 09:58 AM Reporting Lab: [address] [address] Performing Lab: [address] [address] [facility] CBC PLATELET MEAN VOLUME [ENTITIC VOLUME] IN BLOOD BY AUTOMATED COUNT 10.6 fL 7.5 - 11.2 02/12 Specimen Type: BLOOD No comment entered. Ordering Provider: NORM LARSON Report Released Date/Time: Feb 14, 2023 09:58 AM Reporting Lab: [address] [address] Performing Lab: [facility] [address] [facility] [address] [facility] CBC ERYTHROCYTE DISTRIBUTIO N WIDTH [RATIO] BY AUTOMATED COUNT 12.4 11.8 - 15.1 02/12 Specimen Type: BLOOD No comment entered. Ordering Provider: NORM LARSON Report Released Date/Time: Feb 14, 2023 09:58 AM Reporting Lab: [facility] [address] [place] [address] Performing Lab: [facility] [address] [place] [address] [facility] CBC LYMPHOCYTES /100 LEUKOCYTES IN BLOOD BY AUTOMATED COUNT 36 02/12 Specimen Type: BLOOD No comment entered. Ordering Provider: NORM LARSON Report Released Date/Time: Feb 14, 2023 09:58 AM Reporting Lab: [facility] [address] [place] [address] Performing Lab: [facility] [address] [place] [address] [facility] CBC MONOCYTES/1 00 LEUKOCYTES IN BLOOD BY AUTOMATED COUNT 8 02/12 Specimen Type: BLOOD No comment entered. Ordering Provider: NORM LARSON Report Released Date/Time: Feb 14, 2023 09:58 AM Reporting Lab: [address] [address] Performing Lab: [facility] [address] [place] [address] [facility] CBC NEUTROPHILS /100 LEUKOCYTES IN BLOOD BY AUTOMATED COUNT 51 02/12 Specimen Type: BLOOD No comment entered. Ordering Provider: NORM LARSON Report Released Date/Time: Feb 14, 2023 09:58 AM Reporting Lab: [facility] [address] [place] [address] Performing Lab: [facility] [address] [place] [phone] [facility] CBC EOSINOPHILS /100 LEUKOCYTES IN BLOOD BY AUTOMATED COUNT 5 02/12 Specimen Type: BLOOD No comment entered. Ordering Provider: NORM LARSON Report Released Date/Time: Feb 14, 2023 09:58 AM Reporting Lab: [address] [address] Performing Lab: [address] [address] [facility] CBC BASOPHILS/1 00 LEUKOCYTES IN BLOOD BY AUTOMATED COUNT 1 02/12 Specimen Type: BLOOD No comment entered. Ordering Provider: NORM LARSON Report Released Date/Time: Feb 14, 2023 09:58 AM Reporting Lab: [address] [address] Performing Lab: [address] [phone] [place] [address] CBC LYMPHOCYTES [#/VOLUME] IN BLOOD BY AUTOMATED COUNT 2.66 10*3/u L 0.77 - 4.50 02/12 Specimen Type: BLOOD No comment entered. Ordering Provider: NORM LARSON Report Released Date/Time: Feb 14, 2023 09:58 AM Reporting Lab: [address] [address] Performing Lab: [address] [address] [facility] CBC MONOCYTES [#/VOLUME] IN BLOOD BY AUTOMATED COUNT 0.58 10*3/u L 0.19 - 0.80 02/12 Specimen Type: BLOOD No comment entered. Ordering Provider: NORM LARSON Report Released Date/Time: Feb 14, 2023 09:58 AM Reporting Lab: [address] [address] Performing Lab: [address] [address] [facility] CBC NEUTROPHILS [#/VOLUME] IN BLOOD BY AUTOMATED COUNT 3.77 10*3/u L 2.10 - 8.00 02/12 Specimen Type: BLOOD No comment entered. Ordering Provider: NORM LARSON Report Released Date/Time: Feb 14, 2023 09:58 AM Reporting Lab: [place] [phone] Performing Lab: [place] [id number] CBC EOSINOPHILS [#/VOLUME] IN BLOOD BY AUTOMATED COUNT 0.36 10*3/u L 0.00 - 0.60 02/12 Specimen Type: BLOOD No comment entered. Ordering Provider: NORM LARSON Report Released Date/Time: Feb 14, 2023 09:58 AM Reporting Lab: [place] [phone] Performing Lab: [place] [id number] CBC BASOPHILS [#/VOLUME] IN BLOOD BY AUTOMATED COUNT 0.05 10*3/u L 0.00 - 0.20 02/12 Specimen Type: BLOOD No comment entered. Ordering Provider: NORM LARSON Report Released Date/Time: Feb 14, 2023 09:58 AM Reporting Lab: [place] [phone] Performing Lab: [address] CELIAC DISEASE PANEL (STL-MRN) IGA [MASS/VOLUM E] IN SERUM OR PLASMA 164 mg/dL 70 - 320 07/13 Specimen Type: SERUM Comment: No serological evidence of celiac disease. No serological evidence of celiac disease. tTG IgA may normalize in individuals with celiac tTG IgA may normalize in individuals with celiac disease who maintain a gluten-free diet. Consider disease who maintain a gluten-free diet. Consider HLA DQ2 and DQ8 testing to rule out celiac disease. HLA DQ2 and DQ8 testing to rule out celiac disease. Celiac disease is extremely rare in the absence of Celiac disease is extremely rare in the absence of DQ2 or DQ8. DQ2 or DQ8. REFERENCE RANGE: <15.0 U/mL Value Interpretat ion <15.0 Antibody not detected > or = 15.0 Antibody detected Test Performed by [employer], [place], [address] [place] [address] Richard Tapia M.D., Ph.D., Director of Laboratorie s , CLIA [id number] Ordering Provider: LOW DAVILA Report Released Date/Time: Jul 13, 2023 10:00 AM Reporting Lab: [facility] [address] [place] [phone] Performing Lab: [facility] [address] [place] [address] [facility] CELIAC DISEASE PANEL ([facility]) TISSUE TRANSGLUTAM INASE IGA AB [UNITS/VOLU ME] IN SERUM <1.0 07/13 Specimen Type: SERUM Comment: No serological evidence of celiac disease. No serological evidence of celiac disease. tTG IgA may normalize in individuals with celiac tTG IgA may normalize in individuals with celiac disease who maintain a gluten-free diet. Consider disease who maintain a gluten-free diet. Consider HLA DQ2 and DQ8 testing to rule out celiac disease. HLA DQ2 and DQ8 testing to rule out celiac disease. Celiac disease is extremely rare in the absence of Celiac disease is extremely rare in the absence of DQ2 or DQ8. DQ2 or DQ8. REFERENCE RANGE: <15.0 U/mL Value Interpretat ion <15.0 Antibody not detected > or = 15.0 Antibody detected Test Performed by [employer], [place], [address] [place], [place] Richard Tapia M.D., Ph.D., Director of Laboratorie s , CLIA [id number] Ordering Provider: LOW DAVILA Report Released Date/Time: Jul 13, 2023 10:00 AM Reporting Lab: [facility] [address] [facility] [address] Performing Lab: [facility] [address] [facility] Vital Signs Combined list of inpatient and outpatient Vital Signs from Department of Defense and Veterans Affairs, ranging from 12 months to all on record, depending upon the facility. Vital Sign Value Date Comments Source SYSTOLIC BLOOD PRESSURE 145 07/22/2024 08:28:25 [facility] DIASTOLIC BLOOD PRESSURE 84 07/22/2024 08:28:25 [facility] PULSE OXIMETRY 97 07/22/2024 08:28:25 [facility] WEIGHT 243.4 07/22/2024 08:28:25 [facility] BMI 38 kg/m2 07/22/2024 08[facility]28[facility] 0 07/22/[facility]:28[facility]IGHT 67 07/22/2024 08:28:25 [facility] TEMPERATURE 98.5 07/22/2024 08:28:25 [facility] PULSE 54 07/22/2024 08:28:25 [facility] RESPIRATION 18 07/22/2024 08:28:25 [facility] SYSTOLIC BLOOD PRESSURE 150 02/13/2024 09:12:14 [facility] DIASTOLIC BLOOD PRESSURE 67 02/13/2024 09:12:14 [facility] PULSE OXIMETRY 96 02/13/2024 09:12:14 [facility] WEIGHT 244.2 02/13/2024 09:12:14 [facility] BMI 38 kg/m2 02/13/2024 09:12:14 [facility] TEMPERATURE 97.2 02/13/2024 09:12:14 [facility] PULSE 60 02/13/2024 09:12:14 [facility] RESPIRATION 20 02/13/2024 09:12:14 [facility] Encounters Combined list of: 1) Encounters from Department of Veterans Affairs facilities going backup to the last 18 months, not all VA inpatient encounters are included; 2) Encounters from the Department of Defense facilities going backup to 280 months. Location Location Details Encounter Type Encounter Number Reason For Visit Attending Provider ADM Date DC Date Status Disposition Source [facility] HC PRO PHONE CALL 11-20 MIN [id number] Diagnos is: ICD-10- CM I10 Essenti al (primar y) hyperte nsion MAYKLAUDIA,OLGA ISTINE M 07/30 [facility] Outpatient Encounter [id number] Diagnos is: ICD-10- CM R94.5 Abnorma l results of liver functio n studies JOSE FATIMA A 08/20 [facility] Outpatient Encounter [id number] 12/24 [facility] MTMS BY PHARM EST 15 MIN [id number] Diagnos is: ICD-10- CM Z51.81 Encount er for therape utic drug level monitor SAMIR Riddle 12/31 [facility] OFFICE O/P EST MOD 30 MIN [id number] Diagnos is: ICD-10- CM 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 LEATHA TALAVERA M 02/12 [facility] OFF[facility] O/P EST MOD 30 MIN 46541-3.65 [id number] Diagnos is: ICD-10- CM G47.00 Insomni a, unspeci fiAYDEN Benitez 03/27 [facility] Outpatient Encounter [id number] Diagnos is: ICD-10- CM E11.9 Type 2 diabete s mellitu s without complic ations JAMESON SHEFFIELD C 07/15 [facility] IMMUNIZATI ON ADMIN 78114-8.65 [id number] Diagnos is: ICD-10- CM Z00.00 Encntr for general adult medical exam w/o abnorma l finding s RACHEL DAVILA BY R 07/22 [facility] Outpatient Encounter [id number] KALIN SERRANO A 11/13 [facility] Outpatient Encounter [id number] 12/04 [facility] MTMS BY PHARM EST 15 MIN [id number] [id number] Diagnos is: ICD-10- CM Z51.81 Encount er for therape utic drug level monitor SAMIR Riddle 12/19 [facility] Social History Combined list of available smoking, tobacco, and other social history from [facility] [employer] [facility] facilities. Social History Type Response Date Comment Sourc e Tobacco smoking status NHIS VA-TOBACCO NEVER USED 01/05/2023 [facility] History of tobacco use NE-TOBACCO NEVER USED 01/06/2022 [facility] History of tobacco use VA-TOBACCO NEVER USED 05/31/2020 [facility] History of tobacco use VA-TOBACCO NEVER USED 03/20/2018 [facility] History of tobacco use LIFETIME NON-USER OF TOBACCO 03/28/2017 [facility] History of tobacco use LIFETIME NON-USER OF TOBACCO 02/07/2017 [facility] History of tobacco use LIFETIME NON-USER OF TOBACCO 03/14/2016 [facility] History of tobacco use LIFETIME NON-USER OF TOBACCO 04/02/2015 [facility] History of tobacco use LIFETIME NON-USER OF TOBACCO 03/10/2014 [facility] History of tobacco use LIFETIME NON-USER OF TOBACCO 05/10/2013 [facility] History of tobacco use LIFETIME NON-USER OF TOBACCO 05/08/2013 [facility] History of tobacco use LIFETIME NON-USER OF TOBACCO 10/11/2011 [facility] Plan of Care List of future care activities from [facility] facilities. Additional future care activities may be listed in the Assessment and Plan section. Date/Time Care Activity Care Activity Detail Facili ty 02/11/2025 AMBULATORY - MEDICINE AMBULATORY - [facility] Advance Directives List of completed, amended, or rescinded Advance Directives on record at [facility] facilities. An actual copy of the Directive is not included. Date Advance Directive Provider Source 04/27/2023 ADVANCE DIRECTIVE BRIANA GAYLE [facility]
[2025-01-16 12:14] VITALS: BP 146/83; PULSE 72; RESP 18; TEMP 36.6; O2SAT 93
== END 2025-01-16 12:31 | disposition home or self-care (01) ==
PROVIDERS: Emergency Provider Emergency Medicine
DX: S02.2XXA Fracture of nasal bones, initial encounter for closed fracture (principal); S01.511A Laceration without foreign body of lip, initial encounter; Z23 Encounter for immunization; W18.30XA Fall on same level, unspecified, initial encounter; Y92.009 Unspecified place in unspecified non-institutional (private) residence as the place of occurrence of the external cause
CPT/HCPCS: 70450; 70486; 72125; 90471; 90715; 99284